=== PATIENT | female | born 1955 | race Caucasian/White ===

== ENCOUNTER 2020-03-20 14:41 | Outpatient (REF) | payer MEDICARE, SELFPAY ==
--- NOTE | 2020-03-20 14:47 | MM_ITS ---
EXAMINATION: MM SCREENING DIGITAL BREAST TOMOSYNTHESIS, BILATERAL CLINICAL INFORMATION: Screening. Asymptomatic. The lifetime risk of breast cancer based on the Tyrer-Cuzick Model is 9.2%. COMPARISON: Mammography: September 25, 2018 and studies dating back to March 30, 2012 TECHNIQUE: Digital breast tomosynthesis is performed in both the craniocaudal and mediolateral oblique views along with computer-aided detection (CAD). Synthesized 2D images are generated from the tomosynthesis. Additional exaggerated right craniocaudal view performed. FINDINGS: The breasts are heterogeneously dense, which may obscure small masses (ACR BI-RADS breast composition Category c). There are no significant masses, abnormal calcifications, or other abnormalities. MM/MM tomosynthesis screening BI IMPRESSION: There are no significant changes from prior study. ASSESSMENT: BI-RADS 1: Negative RECOMMENDATION: Routine annual mammography screening. This patient's information was entered into a reminder system with a target due date for their next mammogram.
== END 2020-03-20 14:42 | disposition home or self-care (01) ==
LOC: HO.MAMMO 14:41
PROVIDERS: PCP Internal Medicine; Visit Provider Internal Medicine
DX: Z12.31 Encounter for screening mammogram for malignant neoplasm of breast (principal)
CPT/HCPCS: 77063; 77067

== ENCOUNTER 2020-03-26 14:55 | Outpatient (REF) | payer MEDICARE, SELFPAY ==
--- NOTE | 2020-03-26 15:00 | MM_ITS ---
EXAMINATION: BONE DENSITOMETRY CLINICAL INDICATION: Postmenopausal. Estrogen deficiency. COMPARISON: Baseline BD dated 05/19/2011. TECHNIQUE: Using a [employer] DXA System (software version: 13.1) manufactured by [employer], dual-energy x-ray absorptiometry was performed of the lumbar spine and left hip. The images are of good technical quality. Summary results are attached. FINDINGS: AP SPINE L1-L4: Current: BMD 1.203 g/cm2, Z-score 1.3, T-score 0.2, normal, 1.1% decrease from baseline (<5% change is not significant). Baseline: BMD 1.216 g/cm2. LEFT FEMUR, NECK: Current: BMD 0.817 g/cm2, Z-score -0.4, T-score -1.6, osteopenia. Baseline: BMD 0.946 g/cm2. LEFT FEMUR, TOTAL: Current: BMD 0.941 g/cm2, Z-score 0.3, T-score -0.5, normal, 8.9% decrease from baseline (<5% change is not significant). Baseline: BMD 1.033 g/cm2. IDENTIFIED RISK FACTORS: Menopause. HISTORY OF FRACTURE: None listed. MEDICATIONS: Vitamin D. MM/XR DEXA axial skeleton IMPRESSION: 1. DIAGNOSIS: Osteopenia based on the lowest T-score value of -1.6 in the femoral neck applying World Health Organization criteria. 2. 10-YEAR FRACTURE RISK PREDICTION, FRAX: Major osteoporotic fracture (clinical spine, forearm, hip or shoulder) 8.8%. Hip fracture 1.0%. 3. Treatment Recommendations: NOF guidelines recommend consideration for treatment in postmenopausal women and men age 50 and older presenting with the following: -A hip or vertebral (clinical or morphometric) fracture. -T-score less than or equal to -2.5 at the femoral neck or spine after appropriate evaluation to exclude secondary causes. -Low bone mass at the hip or spine and a 10-year fracture probability by FRAX of greater than or equal to 3% for hip fracture or greater than or equal to 20% for major osteoporotic fracture based on the [place] adapted WHO algorithm. 4. Other Recommendations: All treatment decisions require clinical judgment and consideration of individual patient factors, including patient preferences, comorbidities, previous drug use, risk factors not captured in the FRAX model (e.g. frailty, falls, vitamin D deficiency, increased bone turnover, interval significant decline in bone density) and possible under or overestimation of fracture risk by FRAX. Additional medical evaluation for secondary cause of low bone mineral density may be appropriate. FUTURE SCAN RECOMMENDATION: People with diagnosed cases of osteoporosis or at high risk for fracture should have regular bone mineral density tests. For patients eligible for Medicare, routine testing is allowed once every 2 years. The testing frequency can be increased to one year for patients who have rapidly progressing disease, those who are receiving or discontinuing medical therapy to restore bone mass, or have additional risk factors.
== END 2020-03-26 14:56 | disposition home or self-care (01) ==
LOC: HO.MAMMO 14:55
PROVIDERS: PCP Internal Medicine; Visit Provider Internal Medicine
DX: E28.39 Other primary ovarian failure (principal); Z78.0 Asymptomatic menopausal state
CPT/HCPCS: 77080

== ENCOUNTER 2021-03-24 14:26 | Outpatient (REF) | payer MEDICARE, SELFPAY ==
--- NOTE | ~2021-03-24 | MM_ITS ---
EXAMINATION: MM SCREENING DIGITAL BREAST TOMOSYNTHESIS, BILATERAL CLINICAL INFORMATION: Screening. Asymptomatic. The lifetime risk of breast cancer based on the Tyrer-Cuzick Model is 8%. COMPARISON: Mammography: 03/20/2020, 09/25/2018, 09/20/2017, 09/12/2016, 08/20/2015, 08/11/2015, 07/14/2014 TECHNIQUE: Digital breast tomosynthesis is performed in both the craniocaudal and mediolateral oblique views along with computer-aided detection (CAD). Synthesized 2D images are generated from the tomosynthesis. FINDINGS: The breasts are heterogeneously dense, which may obscure small masses (ACR BI-RADS breast composition Category c). There are scattered parenchymal asymmetries greater on left with shifting fibroglandular tissue from year to year. There is no developing density or interval mass or architectural abnormality. No abnormal calcifications. The axilla and skin contours are unremarkable. There are no significant changes. MM/MM tomosynthesis screening BI IMPRESSION: No significant changes from prior studies. ASSESSMENT: BI-RADS 2: Benign RECOMMENDATION: Routine annual mammography screening. This patient's information was entered into a reminder system with a target due date for their next mammogram.
== END 2021-03-24 14:27 | disposition home or self-care (01) ==
LOC: HO.MAMMO 14:26
PROVIDERS: Visit Provider Internal Medicine
DX: Z12.31 Encounter for screening mammogram for malignant neoplasm of breast (principal)
CPT/HCPCS: 77063; 77067

== ENCOUNTER 2022-03-28 10:45 | Outpatient (REF) | payer MEDICARE, SELFPAY ==
--- NOTE | ~2022-03-28 | MM_ITS ---
EXAMINATION: MM SCREENING DIGITAL BREAST TOMOSYNTHESIS, BILATERAL CLINICAL INFORMATION: Screening. Asymptomatic. Family history breast cancer, sisters, daughter. COMPARISON: Mammography: 03/24/2021, 03/20/2020, 09/25/2018, 09/20/2017, 09/12/2016 TECHNIQUE: Digital breast tomosynthesis is performed in both the craniocaudal and mediolateral oblique views along with computer-aided detection (CAD). Synthesized 2D images are generated from the tomosynthesis. Additional right MLO view is provided. FINDINGS: The breasts are heterogeneously dense, which may obscure small masses (ACR BI-RADS breast composition Category c). There are scattered parenchymal asymmetries similar to prior studies. No developing density or interval mass or architectural abnormality. No abnormal calcifications. The axilla and skin contours are unremarkable. No significant changes. MM/MM tomosynthesis screening BI IMPRESSION: No mammographic evidence of malignancy. ASSESSMENT: BI-RADS 2: Benign RECOMMENDATION: Routine annual mammography screening. This patient's information was entered into a reminder system with a target due date for their next mammogram.
== END 2022-03-28 10:46 | disposition home or self-care (01) ==
LOC: HO.MAMMO 10:45
PROVIDERS: PCP Internal Medicine; Visit Provider Internal Medicine
DX: Z12.31 Encounter for screening mammogram for malignant neoplasm of breast (principal)
CPT/HCPCS: 77063; 77067

== ENCOUNTER 2023-03-30 10:49 | Outpatient (REF) | payer MEDICARE, SELFPAY ==
--- NOTE | ~2023-03-30 | MM_ITS ---
EXAMINATION: MM SCREENING DIGITAL BREAST TOMOSYNTHESIS, BILATERAL CLINICAL INFORMATION: Screening. Asymptomatic. Family history breast cancer, sisters, daughter. COMPARISON: Mammography: 03/28/2022, 03/24/2021, 03/20/2020, 09/25/2018, 09/20/2017, 09/12/2016, and dating back to 2014. TECHNIQUE: Digital breast tomosynthesis is performed in both the craniocaudal and mediolateral oblique views along with computer-aided detection (CAD). Synthesized 2D images are generated from the tomosynthesis. FINDINGS: The breasts are heterogeneously dense, which may obscure small masses (ACR BI-RADS breast composition Category c). Parenchymal asymmetry upper outer left breast has been present and stable since 2014, with no appreciable changes. There are no suspicious masses, suspicious grouped calcifications, or areas of architectural distortion in either breast. The parenchymal pattern is stable from prior exams. There are no skin or axillary abnormalities. MM/MM tomosynthesis screening BI IMPRESSION: No mammographic evidence of malignancy. Stable benign findings. ASSESSMENT: BI-RADS BI-RADS 2 - Benign Findings RECOMMENDATION: Routine annual mammography screening. 1 year F/U This examination should not preclude the clinical evaluation of a suspicious palpable abnormality. This patient's information was entered into a reminder system with a target due date for their next mammogram.
== END 2023-03-30 10:50 | disposition home or self-care (01) ==
LOC: HO.MAMMO 10:49
PROVIDERS: PCP Internal Medicine; Visit Provider Internal Medicine
DX: Z12.31 Encounter for screening mammogram for malignant neoplasm of breast (principal)
CPT/HCPCS: 77063; 77067

== ENCOUNTER → 2023-03-30 11:00 | Outpatient (BNV) | payer MEDICARE, SELFPAY | PROVIDERS: PCP Internal Medicine; Visit Provider Radiology Diagnostic Radiology | DX: Z12.31 Encounter for screening mammogram for malignant neoplasm of breast (principal) | CPT/HCPCS: 77063; 77067 ==

== ENCOUNTER 2023-07-18 14:18 | Outpatient (REF) | payer MEDICARE, SELFPAY ==
--- NOTE | ~2023-07-18 | MM_ITS ---
EXAMINATION: BONE DENSITOMETRY CLINICAL INDICATION: Postmenopausal. COMPARISON: Previous BD dated 03/26/2020 and baseline BD dated 05/19/2011. TECHNIQUE: Using a [employer] DXA System (software version: 13.1) manufactured by [employer], dual-energy x-ray absorptiometry was performed of the lumbar spine and left hip. The images are of good technical quality. Summary results are attached. FINDINGS: LEFT FEMUR, NECK: Current: BMD 0.664 g/cm2, Z-score -1.3, T-score -2.7, osteoporosis. Prior: BMD 0.817 g/cm2. Baseline: BMD 0.946 g/cm2. LEFT FEMUR, TOTAL: Current: BMD 0.815 g/cm2, Z-score -0.4, T-score -1.5, osteopenia, 13.4% decrease from previous, 21.1% decrease from baseline (<5% change is not significant). Prior: BMD 0.941 g/cm2. Baseline: BMD 1.033 g/cm2. AP SPINE L1-L4: Current: BMD 1.161 g/cm2, Z-score 1.1, T-score -0.2, normal, 3.5% decrease from previous, 4.5% decrease from baseline (<5% change is not significant). Prior: BMD 1.203 g/cm2. Baseline: BMD 1.216 g/cm2. IDENTIFIED RISK FACTORS: Menopause. HISTORY OF FRACTURE: None listed. MEDICATIONS: Vitamin D. MM/XR DEXA axial skeleton IMPRESSION: 1. DIAGNOSIS: Osteoporosis based on the lowest T-score value of -2.7 in the femoral neck applying World Health Organization criteria. 2. 10-YEAR FRACTURE RISK PREDICTION, FRAX: According to the guidelines, FRAX calculation should only be performed on patients in the osteopenia bone density category. Therefore, FRAX was not performed on this patient. 3. Treatment Recommendations: NOF guidelines recommend consideration for treatment in postmenopausal women and men age 50 and older presenting with the following: -A hip or vertebral (clinical or morphometric) fracture. -T-score less than or equal to -2.5 at the femoral neck or spine after appropriate evaluation to exclude secondary causes. -Low bone mass at the hip or spine and a 10-year fracture probability by FRAX of greater than or equal to 3% for hip fracture or greater than or equal to 20% for major osteoporotic fracture based on the [place] adapted WHO algorithm. 4. Other Recommendations: All treatment decisions require clinical judgment and consideration of individual patient factors, including patient preferences, comorbidities, previous drug use, risk factors not captured in the FRAX model (e.g. frailty, falls, vitamin D deficiency, increased bone turnover, interval significant decline in bone density) and possible under or overestimation of fracture risk by FRAX. Additional medical evaluation for secondary cause of low bone mineral density may be appropriate. FUTURE SCAN RECOMMENDATION: People with diagnosed cases of osteoporosis or at high risk for fracture should have regular bone mineral density tests. For patients eligible for Medicare, routine testing is allowed once every 2 years. The testing frequency can be increased to one year for patients who have rapidly progressing disease, those who are receiving or discontinuing medical therapy to restore bone mass, or have additional risk factors.
== END 2023-07-18 14:19 | disposition home or self-care (01) ==
LOC: HO.MAMMO 14:18
PROVIDERS: PCP Internal Medicine; Visit Provider Internal Medicine
DX: Z13.820 Encounter for screening for osteoporosis (principal); Z78.0 Asymptomatic menopausal state
CPT/HCPCS: 77080

== ENCOUNTER 2023-09-22 07:51 | Outpatient (REF) | payer MEDICARE, SELFPAY ==
--- NOTE | ~2023-09-22 | US_ITS ---
EXAMINATION: MM DIAGNOSTIC DIGITAL BREAST TOMOSYNTHESIS, RIGHT US BREAST LIMITED, RIGHT MAMMOGRAPHY: CLINICAL INFORMATION: 3 episodes of clear right nipple discharge within the last week. Provider noticed palpable focus 6:00 axis anterior one third. Patient has history of sister with breast cancer at age 67 and daughter at age 51. COMPARISON: Mammography: 03/30/2023, 03/28/2022, 03/24/2021, 03/20/2020. TECHNIQUE: Digital right breast tomosynthesis is performed in both the craniocaudal and mediolateral oblique views along with computer-aided detection (CAD). Synthesized 2D images are generated from the tomosynthesis. In addition, full-field right 3-D ML view was also obtained. FINDINGS: There are scattered areas of fibroglandular density (ACR BI-RADS breast composition Category b). There are no suspicious masses, suspicious grouped calcifications, or areas of architectural distortion in either breast. The parenchymal pattern is stable from prior exams. There is no mammographic abnormality in the 6:00 axis anterior right breast, adjacent or near the palpable BB marker. ULTRASOUND: CLINICAL INFORMATION: As above. COMPARISON: None relevant. TECHNIQUE: Targeted sonographic evaluation was performed using a high frequency linear transducer. Attention to the 4-8 o'clock axis was given along with the retroareolar region. Selected archived documentation. FINDINGS: RIGHT BREAST: There is a mixture of fatty and fibroglandular tissue. No suspicious mass is seen. There is no pathologic acoustic shadowing. There is no significant duct ectasia. There is no intraductal mass or other mass seen. No sonographic correlate to the palpable focus at 6:00. Only normal tissue is evident. US/US breast RT limited mamm only IMPRESSION: There are no findings suspicious for malignancy in the right breast. There is no sonographic or mammographic explanation for right nipple discharge. Recommend clinical management and follow-up. There is no sonographic or mammographic explanation for palpable abnormality at 6:00, anterior. Recommend clinical management and follow-up. OVERALL ASSESSMENT: Mammography: BI-RADS 1 - Negative Ultrasound: BI-RADS 1 - Negative RECOMMENDATION: 1. Patient should be managed based on the clinical impression. Decision to proceed with biopsy should be based on clinical grounds and degree of clinical concern. 2. Otherwise, routine annual screening mammography. This patient's information was entered into a reminder system with a target due date for their next mammogram.
== END 2023-09-22 07:52 | disposition home or self-care (01) ==
LOC: HO.MAMMO 07:51
PROVIDERS: PCP Internal Medicine; Visit Provider Internal Medicine
DX: N64.52 Nipple discharge (principal); N63.41 Unspecified lump in right breast, subareolar
CPT/HCPCS: 76642; 77061; 77065

== ENCOUNTER → 2023-09-22 08:00 | Outpatient (BNV) | payer MEDICARE, SELFPAY | PROVIDERS: PCP Internal Medicine; Visit Provider Radiology Diagnostic Radiology | DX: N63.15 Unspecified lump in the right breast, overlapping quadrants (principal); N64.52 Nipple discharge | CPT/HCPCS: 76642; 77065; G0279 ==

== ENCOUNTER 2023-09-29 10:54 | Day surgery (SDC) | payer MEDICARE, SELFPAY ==
[2023-09-27 13:17] VITALS: BMI 30.5
--- NOTE | 2023-09-28 10:59 | HO.ANESPROP2 ---
Documented by User: Dafne Terry NP 09/28/23 11:00 HPI - Anesthesia Eval Consult details Narrative: 67yo F for Colonoscopy [facility] Past Medical History Medical History (Updated 09/27/23 @ 13:14 by Evon Hicks RN) History of skin cancer Thyroid disease Surgical History Surgical History (Updated 09/27/23 @ 13:14 by Evon Hicks RN) History of esophagogastroduodenoscopy (EGD) H/O colonoscopy No pertinent past surgical history Social History Social History Patient Tobacco Use Status: Never used Tobacco Are you DNR?: No Advance Directives: No Advance Directives Information Provided: Yes Nutrition Risks: No Nutritional Risk Meds Allergies Allergy/AdvReac Type Severity Reaction Status Date / Time codeine Allergy Nausea and Verified 09/29/23 11:22 Vomiting esomeprazole [From Nexium] Allergy Agitated Verified 09/27/23 13:13 famotidine [From Pepcid] Allergy Headache Verified 09/27/23 13:13 omeprazole Allergy Agitated Verified 09/27/23 13:13 Sulfa (Sulfonamide Allergy Hives Verified 09/29/23 11:22 Antibiotics) Home Medications ?Medication ?Instructions ?Recorded ?Confirmed ?Last Taken ?Type cholecalciferol (vitamin D3) 25 25 mcg PO DAILY 09/27/23 09/27/23 Unknown History mcg (1,000 unit) tablet (Vitamin D3) levothyroxine 150 mcg tablet 150 mcg PO DAILY 09/27/23 09/27/23 Unknown History Exam Height,Weight and Vital Signs: Height 5 ft 2 in Weight 75.75 kg Assessment and Plan Assessment Anesthesia Assessment: Chart Reviewed Documented by User: Osmel Walker MD 09/29/23 11:29 [facility] Past Medical History Medical History (Updated 09/27/23 @ 13:14 by Evon Hicks RN) History of skin cancer Thyroid disease Family History Family history of problems with anesthesia: No Surgical History Surgical History (Updated 09/27/23 @ 13:14 by Evon Hicks RN) History of esophagogastroduodenoscopy (EGD) H/O colonoscopy No pertinent past surgical history History of Problems with Anesthesia: No Social History Social History Patient Tobacco Use Status: Never used Tobacco Are you DNR?: No Advance Directives: No Advance Directives Information Provided: Yes Nutrition Risks: No Nutritional Risk Meds Allergies Allergy/AdvReac Type Severity Reaction Status Date / Time codeine Allergy Nausea and Verified 09/29/23 11:22 Vomiting esomeprazole [From Nexium] Allergy Agitated Verified 09/27/23 13:13 famotidine [From Pepcid] Allergy Headache Verified 09/27/23 13:13 omeprazole Allergy Agitated Verified 09/27/23 13:13 Sulfa (Sulfonamide Allergy Hives Verified 09/29/23 11:22 Antibiotics) Home Medications ?Medication ?Instructions ?Recorded ?Confirmed ?Last Taken ?Type cholecalciferol (vitamin D3) 25 25 mcg PO DAILY 09/27/23 09/27/23 Unknown History mcg (1,000 unit) tablet (Vitamin D3) levothyroxine 150 mcg tablet 150 mcg PO DAILY 09/27/23 09/27/23 Unknown History Exam Airway Mallampati Class: II TM Dist: >3cm Neck ROM: Full Assessment and Plan Assessment Anesthesia Assessment: Anesthesia Plan Discussed Final Anesthetic Review Family History of Problems with Anesthesia: No History of Problems with Anesthesia: No NPO: Yes ASA Class: II Final Preanesthetic Review: No Changes in Pt Med Stat, Meds/Allgs Chart Reviewed, Consent Obtained/Reviewed and Anes Risks/Benef Reviewed Patient Risk: Low Procedure Risk: Low Anesthetic Plan Anesthetic Plan: TIVA Disposition: Standard PACU
[2023-09-29] MEDS: Lactated Ringers 1,000 ML 100 ML IVCONT (11:08)
[2023-09-29 11:16] VITALS: BP 151/82; PULSE 72; RESP 18; TEMP 36.6; O2SAT 98
--- NOTE | 2023-09-29 13:10 | P.BOP_ITS ---
Brief Operative Note Date of Service: 09/29/23 Pre-op diagnosis: Screening, Family history of colon cancer Post-op diagnosis: other (Diverticulosis) Procedure: Colonoscopy to the cecum Surgeon: Neeraj Robles MD Anesthesia: MAC Was an Framing Specialist used for this Procedure?: No Estimated blood loss (mL): 0 Pathology: none sent Condition: stable Disposition: PACU
[2023-09-29 13:11] VITALS: BP 106/58; PULSE 87; RESP 16; TEMP 36.1; O2SAT 98
[2023-09-29 13:26] VITALS: BP 129/65; PULSE 68; RESP 16; TEMP 36.2; O2SAT 98
[2023-09-29 13:34] VITALS: BP 138/70; PULSE 68; RESP 16; TEMP 36.2; O2SAT 98
--- NOTE | 2023-09-30 02:17 | OP_ITS ---
DATE OF SERVICE: 09/29/2023 SURGEON: Neeraj Robles MD INDICATIONS: The patient presents for evaluation of colorectal cancer screening and family history of colon cancer. Full consent was obtained from her for this, including risks of bleeding and perforation. PREOPERATIVE DIAGNOSIS: Colorectal cancer screening. POSTOPERATIVE DIAGNOSIS: PROCEDURE PERFORMED: Colonoscopy to cecum. ESTIMATED BLOOD LOSS: COMPLICATIONS: ANESTHESIA: Medication used, monitored anesthesia care. ASSISTANTS: SPECIMENS: POSTOPERATIVE DIAGNOSES: Colorectal cancer screening, diverticulosis and internal hemorrhoids. DESCRIPTION OF PROCEDURE: The patient was placed in the left lateral decubitus position. The digital rectal exam revealed no abnormalities. The Olympus video pediatric colonoscope was entered into the rectum and advanced easily to the cecum. Once in the cecum, I did identify normal-appearing cecal pouch with appendiceal orifice and a normal-appearing ileocecal valve. The entire cecum and ileocecal valve appeared normal. There was transillumination of light deep in the right lower quadrant. The scope was then slowly withdrawn assessing all mucosal surfaces carefully. Preparation was excellent. I did not visualize any sign of polyps, colitis, nor angiodysplasia. There was a mild amount of sigmoid diverticulosis. In the rectum, scope was retroflexed visualizing small internal hemorrhoids, but no other pathology. The rectal mucosa appeared normal. Scope was straightened and withdrawn from the patient. She tolerated the procedure well and was returned to the recovery area in stable condition. IMPRESSION: 1. Diverticulosis. 2. Internal hemorrhoids. PLAN: Given her family history, I would recommend a followup coloscopy in 5 years. She will otherwise see me on a p.r.n. basis. This has been discussed with her . Neeraj Robles MD RMW/KARINL / [phone]
== END 2023-09-29 14:10 | disposition home or self-care (01) ==
PROVIDERS: PCP Internal Medicine; Visit Provider Internal Medicine
PROC: 0DJD8ZZ Inspection of Lower Intestinal Tract, Via Natural or Artificial Opening Endoscopic (ICD-10-PCS; CPT 45378; principal; 2023-09-29 12:40)
DX: Z12.11 Encounter for screening for malignant neoplasm of colon (principal); K57.30 Diverticulosis of large intestine without perforation or abscess without bleeding; K64.8 Other hemorrhoids; Z80.0 Family history of malignant neoplasm of digestive organs
CPT/HCPCS: G0105; J1596; J2704

== ENCOUNTER 2024-04-04 10:24 | Outpatient (REF) | payer MEDICARE, SELFPAY ==
--- NOTE | ~2024-04-04 | MM_ITS ---
EXAMINATION: MM SCREENING DIGITAL BREAST TOMOSYNTHESIS, BILATERAL CLINICAL INFORMATION: Screening. Asymptomatic. COMPARISON: Mammography: Comparison is made with available priors TECHNIQUE: Digital breast mammography with tomosynthesis is performed in both the craniocaudal and mediolateral oblique views along with computer-aided detection (CAD). FINDINGS: The breasts are heterogeneously dense, which may obscure small masses (ACR BI-RADS breast composition Category c). Bilateral scattered asymmetries are stable. There are no significant masses, abnormal calcifications, or other abnormalities. MM/MM tomosynthesis screening BI IMPRESSION: No mammographic evidence of malignancy. ASSESSMENT: BI-RADS BI-RADS 2 - Benign Findings RECOMMENDATION: Routine annual mammography screening. 1 year F/U This examination should not preclude the clinical evaluation of a suspicious palpable abnormality. This patient's information was entered into a reminder system with a target due date for their next mammogram. Electronically signed by: Elizabeth Mann DO 04/15/2024 09:30 AM [facility]
== END 2024-04-04 10:25 | disposition home or self-care (01) ==
LOC: HO.MAMMO 10:24
PROVIDERS: PCP Internal Medicine; Visit Provider Internal Medicine
DX: Z12.31 Encounter for screening mammogram for malignant neoplasm of breast (principal)
CPT/HCPCS: 77063; 77067

== ENCOUNTER → 2024-04-04 10:30 | Outpatient (BNV) | payer MEDICARE, SELFPAY | PROVIDERS: PCP Internal Medicine; Visit Provider Internal Medicine | DX: Z12.31 Encounter for screening mammogram for malignant neoplasm of breast (principal) | CPT/HCPCS: 77063; 77067 ==

== ENCOUNTER 2025-04-07 11:23 | Outpatient (REF) | payer MEDICARE, SELFPAY ==
--- NOTE | ~2025-04-07 | MM_ITS ---
EXAMINATION: MM SCREENING DIGITAL BREAST TOMOSYNTHESIS, BILATERAL CLINICAL INFORMATION: Screening. Asymptomatic. COMPARISON: Comparison made to multiple prior, most recent April 04, 2024, and most remote September 25, 2018. TECHNIQUE: Digital breast tomosynthesis is performed in mediolateral oblique and craniocaudal views along with computer-aided detection (CAD). Synthesized 2D images are generated from the tomosynthesis. FINDINGS: BREAST COMPOSITION: The breasts are heterogeneously dense, which may obscure small masses. BILATERAL BREASTS: No significant masses, suspicious calcifications or other abnormalities are seen in either breast. MM/MM tomosynthesis screening BI IMPRESSION: BILATERAL BREASTS: Negative, no mammographic evidence of malignancy. Normal interval follow-up is recommended in 12 months. ASSESSMENT: BI-RADS: Category 1: Negative RECOMMENDATION: Routine annual mammography screening. FOLLOW-UP: 1 year F/U This examination should not preclude the clinical evaluation of a suspicious palpable abnormality. This patient's information was entered into a reminder system with a target due date for their next mammogram. Electronically signed by: Ramya Payton MD 04/08/2025 12:37 PM [facility]
--- OUTSIDE RECORDS SUMMARY | 2025-04-07 14:59 | XMS_ITS | Clinical Summary ---
Author Organization [facility] Address [address] [address] Phone Care Team Providers Care Nurse Practitioner Per Diem Name Role Phone Eugene Daley MD Primary Care Provider [phone] Eugene Daley MD Unavailable [phone] Nicholas Hirsch MD Unavailable [phone] Ana Roe Unavailable [phone] Allergies Active Allergy Reactions Criticality Noted Date Comments Atorvastatin Palpitations Low 09/30/2022 Codeine Nausea and/or Vomiting 07/28/2017 Esomeprazole Magnesium Anxiety Low 07/28/2017 Omeprazole Other (See Comments) 07/28/2017 fatigue Sulfa (Sulfonamide Antibiotics) Hives 07/28/2017 Medications Bacillus coagulans 10 billion cell CpDR Take 1 tablet by mouth daily. Active calcium citrate-vitamin D3 (CITRACAL+D) 950 mg (200 mg elemental)-250 units Tab Take 2 tablets by mouth daily. Active levothyroxine (SYNTHROID, LEVOTHROID) 150 MCG tablet TAKE 1 TABLET BY MOUTH SIX DAYS A WEEK AND 1/2 A TABLET ON SUNDAYS. 75 tablet 3 11/18/2024 Active Active Problems Problem Noted Date Diagnosed Date Discharge from right nipple 09/19/2023 Assessment & Plan (09/19/2023 12:59 PM EDT): She has a pos mass and spontaneous d/C on right- Doing labs an urgent US and ref to breast center. FR to help book US and appt I asked her to call us by Fri morning if she has not heard Subareolar mass of right breast 09/19/2023 Assessment & Plan (09/19/2023 12:59 PM EDT): She has a pos mass and spontaneous d/C on right- Doing labs an urgent US and ref to breast center. FR to help book US and appt I asked her to call us by Fri morning if she has not heard Age-related osteoporosis wit hout current pathological fracture 05/15/2023 Assessment & Plan (12/04/2023 1:20 PM EDT): 68 y.o. post-menopausal woman with osteoporosis on bone density. There has been a significant decline from [id number]. She has no hx of fracture & no family hx osteoporosis or fracture, other than in 1 sister who had multiple medical issues, including RA,steroid use, thyrotoxicosis, s/p CRUZ, breast CA & CKD. Her mother lived to almost 100 & had no fracture. She is active & not at risk for falls. She is getting vitamin D, but probably not adequate calcium intake. Reviewed normal bone physiology across the lifespan. Reviewed role of adequate calcium & vitamin D, weight-bearing exercise, avoiding falls and pharmacologic rx with risks/benefits. Advised her to refer to UpToDate patient information @ calcium & vitamin D & prevention and treatment of osteoporosis, beyond the basics for additional information. Will obtain/review actual images to evaluate for technical consistency. Will order any further testing to evaluate for secondary causes after that (including vitamin D level & PTH). Advised her to work on increasing intake of calcium via diet +/- low dose calcium supplements (e.g. citracal petites). Although given her bone density is in the osteoporotic range & she does meet current guidelines for pharmacologic rx, she is inclined to prefer to monitor over adding pharmacologic rx which I think is reasonable given lack of risk factors for fracture other than low bone density in the femoral neck/age. Hyperlipidemia 08/07/2017 Hypothyroidism 08/07/2017 Pure hypercholesterolemia 08/07/2017 Encounters Date Type Department Care Team Description 03/14/2025 Telephone [facility] [place] Internal Medicine 40 [facility] [place] [address] Eugene Daley MD Referral request from Last 3 Months Immunizations Immunization Administration Dates Next Due COVID-19 (Pre-03/06) Pfizer Vaccine, mRNA, PF 08/08/2020,07/18/2020 [id number] FORMULATION 04/14/2010 INFLUENZA, SPLIT VIRUS, TRIVALENT PF 02/02/2016 INFLUENZA, SPLIT VIRUS, TRIV ALENT W/ PRESERVATIVE IM 03/10/2015,02/17/2014,01/27/2012 Influenza High-Dose Quadriva lent Preservative Free IM 02/24/2021 Influenza Quadrivalent Adjuv anted Preservative Free IM 02/21/2023,02/14/2022 Influenza Quadrivalent Preservative Free IM 01/14,03/02/2018,02/02/2017 Influenza Recombinant Fernando valent Preservative Free IM 02/20/2020 Influenza Trivalent Adjuvant ed Preservative free IM 02/12/2024 Influenza trivalent preserva tive free intradermal 02/07/2013 Influenza, Unspecified Formulation 02/09/2011,,02/12/2009 Pneumococcal conjugate PCV13 03/10/2020 Pneumococcal polysaccharide PPSV23 03/11/2021 Tdap 05/06/2011 Zoster live 07/07/2015 Zoster recombinant 04/22/2021,11/07/2020 Family History Medical History Relation Comments Colon cancer Father Diabetes Father Atrial fibrillation Mother Heart disease Mother Cancer Niece breast Ca at age 52 Cancer Sister breast CA, dx at age 65 chai Diabetes Sister Osteoporosis Sister vertebral compre ssion fracture Rheumatoid arthritis Sister Nephrolithiasis Neg Hx Relation Status Comments Father Mother Niece Alive Sister Social History Tobacco Use Types Packs/Day Years Used Date Smoking Tobacco: Never Smokeless Tobacco: Never Tobacco Cessation:Counseling Given: Not Answered Alcohol Use Standard Drinks/Week Comments No 0 (1 standard drink = 0.6 oz pur e alcohol) Child or Family Care Answer Date Record ed Do you have problems with on e of the following making it difficult for you to work, study, or receive health care? No 06/14/2023 Education Answer Date Recorded Are you interested in more education? Not on windy e 09/09/2022 Are you concerned about learning? Not on file 09/09/2022 No 09/09/2022 No 09/09/2022 Food Answer Date Recorded Within the past 6 months we worried whether our food would run out before we got money to buy more. Never True 06/14/2023 Within the past 6 months the food we bought just didn't last and we didn't have enough money to get more. Never True Residential Stability Answer Date Recor ded What is your housing situation today? I have toshia sing 06/14/2023 How many times have you move d in the past 12 months? Zero (I did not move) 06/14/2023 Paying for Meds Answer Date Recorded Do you have trouble paying for medicines? No 06/14/2023 Paying Utility Bills Answer Date Record ed Do you have trouble paying your heating or elect ricity bill? No 06/14/2023 Transportation Answer Date Recorded Has the lack of transportati on kept you from medical appointments or from getting medications? No 06/14/2023 Digital Access Answer Date Recorded No 06/14/2023 Yes 06/14/2023 Do you have reliable internet access at home? Ye s 06/14/2023 Do you have a device (e.g., phone, tablet, computer) with a working camera? Yes 06/14/2023 Intimate Partner Violence Answer Date R ecorded Denied Basic Needs Not on file 06/16/2024 In the past 12 months have y ou been in a relationship with a person who hurts, threatens, or tries to control you? No 06/16/2024 Worried food would run out Not on file 06/16 In the past 12 months have y ou been in a relationship with a person who hurts, threatens, or tries to control you? No 06/16/2024 Comments No Sex and Gender Information Value Date Recorded Sex Assigned at Female 09/24/2021 12:11 AM EDT Legal Sex Female 9:55 PM EDT Gender Identity Female 09/24/2021 12:11 AM EDT Sexual Orientation Straight 09/24/2021 12 :11 AM EDT Last Filed Vital Signs Vital Sign Reading Time Taken Comments Blood Pressure 140/78 06/21/2024 1:29 PM EST Pulse 50 06/21/2024 1:29 PM EST Temperature 36.5 C (97.7 F) 06/21/2024 1:29 PM EST Respiratory Rate 16 06/21/2024 1:29 PM EST Oxygen Saturation 100% 06/21/2024 1:29 PM EST Inhaled Oxygen Concentration - - Weight 75.3 kg (166 lb) 06/21/2024 1:29 PM EST Height 156.2 cm (5' 1.5 ) 06/21/2024 1:29 PM EST Body Mass Index 30.86 06/21/2024 1:29 PM EST Plan of Treatment Upcoming Encounters Date Type Department Care Team (Late st Contact Info) Description 06/25/2025 1:30 PM EST Office Visit [facility] Internal Medicine [address] [place] [address] Eugene Daley MD [address] [place] [address] [email or web address] Health Maintenance Due Date Last Done Comments HEPATITIS C SCREENING 1972 COLOGUARD 11/28/1999 FIT TEST 11/28/1999 FOBT 11/28/1999 SIGMOIDOSCOPY 11/28/1999 VIRTUAL COLONOSCOPY 11/28/1999 Adult Td,Tdap Booster 05/06/2021 05/06/2011 INFLUENZA VACCINE (#1) 2024 , 02/21/2023, 02/14/2022, Additional history exists COVID-19 VACCINE ( season) 2025 05/22/2024, 02/04/2023, 01/26/2022, Additional history exists DEPRESSION SCREENING 06/16/2025 06/16/2024 TSH LEVEL 07/09/2025 07/09/2024, 05/0 11/2023, 06/29/2023, Additional history exists MAMMOGRAM 04/04/2026 04/04/2024, 05/1 , 09/22/2023, Additional history exists COLONOSCOPY 06/07/2028 06/07/2018, 08/13/2014 COLORECTAL CANCER SCREENING 06/07/2028 LIPID PANEL 07/09/2029 07/09/2024, 06/15, 06/28/2023, Additional history exists RSV VACCINE (1 - 1-dose 75+ series) 2029 PNEUMOCOCCAL VACCINES (50+ years) Completed 03/11/2021, 03/10/2020 ZOSTER VACCINES Completed 04/22/2021, 10/14, 07/07/2015 OSTEOPOROSIS SCREENING INITIAL (ONE-TIME) Completed 07/18/2023, 03/26/2020 SMOKING STATUS SCREENING (Once After 26 Yrs) Completed 06/21/2024 HEPATITIS A VACCINES Aged Out No long er eligible based on patient's age to complete this topic HIB VACCINES Aged Out No longer eligi ble based on patient's age to complete this topic MENINGOCOCCAL VACCINES (ACWY) Aged Out No longer eligible based on patient's age to complete this topic MENINGOCOCCAL VACCINES (B) Aged Out N o longer eligible based on patient's age to complete this topic Medical Devices Not on file Procedures Procedure Name Priority Date/Time Associated Diagnosis Comments LIPID PANEL Routine 07/09/2024 11:42 AM EST Pure hypercholesterolemia TSH WITH REFLEX Routine 07/09/2024 11:42 AM EST Hypothyroidism, unspecified type MAMMOGRAPHY Routine 04/04/2024 4:31 PM EST BD DXA MONITORING Routine 07/18/2023 10: 18 AM EST Postmenopausal estrogen deficiency COLONOSCOPY FOR RESULT ENTRY ONLY Routine 06/07/2018 from Last 3 Months or Most Recently Relevant to Health Maintenance Results * TSH with reflex (07/09/2024 11:42 AM EST) TSH 0.83 0.27 - 4.20 uIU/mL [facility] Blood 07/09/2024 11:4 2 AM EST 07/09/2024 11:46 AM EST us Eugene Daley MD LAB BLOOD BKR ORDERABLES Bijal foley Result [address] [address] * (ABNORMAL) Lipid panel (07/09/2024 11:42 AM EST) HDL 59 mg/dL [facility] Comment: Interpretation <40 mg/dL: Low HDL cholesterol (major risk factor for CHD) Greater than or equal to 60 mg/dL: High HDL cholesterol ( negative risk factor for CHD) HDL - cholesterol is affected by a number of factors, e.g. smoking, excerise, hormones, sex and age. CHOLESTEROL 224 0 - 240 mg/dL [facility] TRIGLYCERIDES 97 30 - 160 mg/dL [facility] LDL 146(H) 50 - 129 mg/dL [facility] Comment: LDL levels in terms of risk for coronary heart disease: <100 mg/dL: Optimal 100-129 mg/dL: Near or above optimal 130-159 mg/dL: Borderline high 160-189 mg/dL: High >190 mg/dL: Very High CARDIAC RISK RATIO 3.8 3.3 - 4.4 [facility] Blood 07/09/2024 11:4 2 AM EST 07/09/2024 11:46 AM EST Eugene Daley MD LAB BLOOD BKR ORDERABLES Bijal l Result [address] [address] * MAMMOGRAPHY FOR RESULT ENTRY ONLY (04/04/2024 4:31 PM EST) Historical Provider HEALTH MAINTENANCE Final Result * DXA Monitoring (07/18/2023 10:18 AM EST) Anatomical Region Laterality Modality Bone Density Bone Density Eugene Daley MD IMG BD BONE DENSITY DEXA Bijal l Result * HM COLONOSCOPY FOR RESULT ENTRY ONLY (06/07/2018) Historical Geena WHEAT HEALTH MAINTENANCE Edited Result - Final from Last 3 Months or Most Recently Relevant to Health Maintenance Insurance [employer] MEDICARE PART A & B [employer] MEDICARE PART A & B [employer]PLAC[employer] MEDICARE PART A & B [employer] REPLAC[employer] MEDICARE PART A & B [employer] REPLAC[employer] MEDICARE PART A & B [employer] RE[employer] MEDICARE PART A & B [employer] RE[employer] MEDICARE PART A & B [employer] REPLAC[employer] MEDICARE PART A & B [employer] MEDICARE PART A & B Care Teams Nurse Practitioner Per Diem Relationship Specialty Start Date End Date Eugene Daley MD [address] [place] [address] PCP - General 03/02/17 Eugene Daley MD [address] [place] [address] Historical LMR Provider 03/05/17 Nicholas Hirsch MD [address] [place] [address] Ophthalmology 03/10/20 Ana Roe PA [address] [address] Treatment Team Experimental Electronics Developer 03/10/20 Additional Source Comments The information contained in this document represents components of the legal health record. It is not the complete legal health record.[facility]
--- OUTSIDE RECORDS SUMMARY | 2025-04-07 14:59 | XMS_ITS | Encounter Summary ---
Author Organization [facility] Address [address] [facility] [address] [place] [address] Phone Care Team Providers Care Regulatory Scientist Name Role Phone Eugene Daley MD Primary Care Provider [phone] Eugene Daley MD Unavailable [phone] Nicholas Hirsch MD Unavailable Ana Roe Unavailable Encounter Details Date Type Department Care Team (Late st Contact Info) Description 12/05/2023 Ancillary Orders [address] [address] System, Provider Not In, [place] [address] Social History Tobacco Use Types Packs/Day Years Used Date Smoking Tobacco: Never Smokeless Tobacco: Never Alcohol Use Standard Drinks/Week Comments No 0 [...] ecorded Denied Basic Needs Not on file 06/14/2023 In the past 12 months have y ou been in a relationship with a person who hurts, threatens, or tries to control you? No 06/14/2023 Worried food would run out Not on file 06/14 In the past 12 months have y ou been in a relationship with a person who hurts, threatens, or tries to control you? No 06/14/2023 Comments No Sex and Gender Information Value Date Recorded Sex Assigned at Female 09/24/2021 12:11 AM EDT Legal Sex Female 9:55 PM EDT Gender Identity Female 09/24/2021 12:11 AM EDT Sexual Orientation Straight 09/24/2021 12 :11 AM EDT documented as of this encounter Plan of Treatment Upcoming Encounters Date Type Department Care Team (Katelyn st Contact Info) Description 06/25/2025 1:30 PM EST Office Visit [facility] Internal Medicine 40 [place] [address] Eugene Daley MD [address] [place] [address] [email or web address] documented as of this encounter Results * DXA Outside (No Interpretation) (07/18/2023 12:00 AM EST) Narrative Record, 12/05/2023 5:23 PM EDT This study is for PACS storage only and not for interpretation. Procedure Note Record, 12/05/2023 This study is for PACS storage only and not for interpretation. us Provider Not In System PhD IMG OUTSIDE IMAGING W /OUT INTERPRETATION Final Result documented in this encounter Visit Diagnoses Not on filedocumented in this encounter Additional Health Concerns Assessment Noted Time PHQ-2 Depression Total Score: 0 06/14/19 24 4:33 PM EST documented as of this encounter Care Teams Regulatory Scientist Relationship Specialty Start Date End Date Eugene Daley MD [address] [place] [address] PCP - General 03/02/17 Eugene Daley MD [address] [place] [address] [email or web address] Historical LMR Provider 03/05/17 Nicholas Hirsch MD [address] [place] [address] [place] [address] Ophthalmology 03/10/20 Ana Roe PA [address] [facility] 5 [place] [address] Treatment Team Spanish Interpreter/Translator 03/10/20 documented as of this encounter Additional Source Comments The information contained in this document represents components of the legal health record. It is not the complete legal health record.[facility]
--- OUTSIDE RECORDS SUMMARY | 2025-04-07 15:00 | XMS_ITS | Encounter Summary ---
Author Organization [facility] Address [address] [address] Phone Care Team Providers Care Monument Installer Name Role Phone Eugene Daley MD Primary Care Provider [phone] Eugene Daley MD Unavailable [phone] Nicholas Hirsch MD Unavailable Ana Roe Unavailable [phone] Reason for Referral * Consultation (Within 2 weeks) - Authorized Specialty Diagnoses / Procedures Referred By Jacqueline garcia Referred To Contact Diagnoses Skin exam, screening for cancer Eugene Daley MD [address] [place] [address] Phone: tel: fax: [email or web address] Ana Roe PA [address] [place] [address] Phone: tel: fax: Referral ID Status Reason Start Date Expiration Date V isits Requested Visits Authorized [id number] Authorized 03/17/2025 03/17/2026 6 6 Reason for Visit * Reason Onset Date Comments Referral request 03/14/2025 Encounter Details Date Type Department Care Team (Late st Contact Info) Description 03/14/2025 Telephone [facility] [place] Internal Medicine [address] [place] [address] Eugene Daley MD [address] [place] [address] [email or web address] Referral request Social History Tobacco Use Types Packs/Day Years [...] AM EDT documented as of this encounter Progress Notes * Leno Guillen - 03/14/2025 2:28 PM EDT Faxed referral, demographics and office noted with confirmation receipt received. * Leno Guillen - 03/14/2025 12:58 PM EDT Referral Request 1. Name of the office where the patient has been seen/requests to be seen: [facility] 2. Reason for referral/specialist appointment and the diagnosis code: annual skin exam 3. Date of appointment(s):03/24/25 4. Name of specialist provider: Ana Roe 5. NPI number to enter for referral auhorization (enter n/a if not available): [id number] 6. Number of visits requested for referral: 6 7. Fax number of specialist office to send referral authorization: [phone] Referral pended for provider documented in this encounter Plan of Treatment Upcoming Encounters Date Type Department Care Team (Late st Contact Info) Description 06/25/2025 1:30 PM EST Office Visit [facility] Internal Medicine 40 [facility] [place] [address] Eugene Daley MD [address] [place] [address] Scheduled Referrals Name Type Priority Associated Diagnoses Order Schedule Ambulatory referral to External Dermatology Outpatient Referral Routine Skin exam, screening for cancer Ordered: 03/14/2025 documented as of this encounter Visit Diagnoses Diagnosis Skin exam, screening for cancer- Primary Screening for malignant neoplasm of the skin documented in this encounter Additional Health Concerns Assessment Noted Time PHQ-2 Depression Total Score: 0 06/16/19 25 6:05 PM EST documented as of this encounter Care Teams Monument Installer Relationship Specialty Start Date End Date Eugene Daley MD [address] [place] [address] PCP - General 03/02/17 Eugene Daley MD [address] [place] [address] Historical LMR Provider 03/05/17 Nicholas Hirsch MD [address] [place] [address] Ophthalmology 03/10/20 Ana Roe PA [address] [address] Treatment Team Visual C Developer 03/10/20 documented as of this encounter Additional Source Comments The information contained in this document represents components of the legal health record. It is not the complete legal health record.[facility]
--- OUTSIDE RECORDS SUMMARY | 2025-04-07 15:00 | XMS_ITS | Encounter Summary ---
Author Organization [facility] Address [address] [facility] [address] [place] [address] Phone Care Team Providers Care Claims Clerk Name Role Phone Eugene Daley MD Primary Care Provider [phone] Eugene Daley MD Unavailable [phone] Nicholas Hirsch MD Unavailable [phone] Ana Roe Unavailable [phone] Encounter Details Date Type Department Care Team (Late st Contact Info) Description 12/05/2023 Ancillary Orders [address] [address] System, Provider Not In, [place] [address] Social History Tobacco Use Types Packs/Day Years [...] 1:30 PM EST Office Visit [facility] Internal Medicine 40 [facility] [place] [id number] Eugene Daley MD [address] [place] [address] [email or web address] documented as of this encounter Results * DXA Outside (No Interpretation) (03/26/2020 12:00 AM EST) Narrative Record, 12/05/2023 5:27 PM EDT This study is for PACS [...] documented as of this encounter Care Teams Claims Clerk Relationship Specialty Start Date End Date Eugene Daley MD [address] [place] [address] PCP - General 03/02/17 Eugene Daley MD [address] [place] [address] Historical LMR Provider 03/05/17 Nicholas Hirsch MD [address] [place] [address] [place] [address] Ophthalmology 03/10/20 Ana Roe PA [address] [facility] 5 [place] [address] Treatment Team Percussion Tuner 03/10/20 documented as of this encounter Additional Source Comments The information contained in this document represents components of the legal health record. It is not the complete legal health record.[facility]
== END 2025-04-07 11:24 | disposition home or self-care (01) ==
LOC: HO.MAMMO 11:23
PROVIDERS: PCP Internal Medicine; Visit Provider Internal Medicine
DX: Z12.31 Encounter for screening mammogram for malignant neoplasm of breast (principal)
CPT/HCPCS: 77063; 77067

== ENCOUNTER → 2025-04-07 11:30 | Outpatient (BNV) | payer MEDICARE, SELFPAY | PROVIDERS: PCP Internal Medicine; Visit Provider Radiology Body Imaging | DX: Z12.31 Encounter for screening mammogram for malignant neoplasm of breast (principal) | CPT/HCPCS: 77063; 77067 ==